=== PATIENT | male | born 1980 | race Caucasian/White ===

== ENCOUNTER 2018-04-10 04:13 | Emergency (ER) | payer BC ==
[~2018-04-10] VITALS: Ht 195.6 cm; Wt 129.3 kg
[~2018-04-10 04:13] MED LIST: NABUMETONE 750750 M1 PO; NORCO 5-325 TA1 EACH PO
[2018-04-10] MEDS ORDERED: LISINOPRIL20 MG PO (04:27)
[2018-04-10] MEDS ORDERED: NORVASC2.5 MG PO (04:27)
[2018-04-10] MEDS ORDERED: CARISOPRODOL 3350 MG PO (04:27)
[2018-04-10] MEDS ORDERED: PRILOSEC 10MG C10 MG PO (04:28)
[2018-04-10] MEDS ORDERED: NORCO 5-325 TA1 EACH PO (04:28)
[2018-04-10] MEDS ORDERED: NAPROSYN500 MG PO (07:48)
[2018-04-10] MEDS ORDERED: TRAMADOL 50 MG50 MG PO (07:48)
== END 2018-04-10 08:03 | disposition home or self-care (01) ==
LOC: ER 04:13
DX: S29.012A Strain of muscle and tendon of back wall of thorax, initial encounter (principal); M99.18 Subluxation complex (vertebral) of rib cage; G89.29 Other chronic pain; X58.XXXA Exposure to other specified factors, initial encounter; Y92.89 Other specified places as the place of occurrence of the external cause; Y93.89 Activity, other specified; Y99.8 Other external cause status

== ENCOUNTER 2018-06-21 09:51 | Emergency (ER) | payer BC ==
[~2018-06-21] VITALS: Ht 195.6 cm; Wt 135.6 kg
[~2018-06-21 09:51] MED LIST changes: +CARISOPRODOL 3350 MG PO; +LISINOPRIL20 MG PO; +NAPROSYN500 MG PO; +NORVASC2.5 MG PO; +PRILOSEC 10MG C10 MG PO; +TRAMADOL 50 MG50 MG PO
[2018-06-21 10:54] LABS: ABSOLUTE NEUTROPHILS 3.5 thou/uL (1.4-8.2); BASOPHILS 0.8 % (0.0-2.0); HEMATOCRIT 48.3 % (42.0-52.0); HEMOGLOBIN 16.7 gm/dL (14.0-18.0); LYMPHOCYTES 36.7 % (24.0-44.0); MCH 30.1 pg (26.0-34.0); MCHC 34.5 g/dL (28.0-37.0); MCV 87.3 fL (80.0-100.0); MONOCYTES 7.5 % (1.0-8.0); PLATELET COUNT 194 thou/uL (150-400); RBC 5.53 mil/uL (4.50-6.00); RDW 13.2 % (10.5-14.5); WBC 6.4 thou/uL (4.0-11.0)
[2018-06-21 11:09] LABS: ANION GAP 10 mmol/L (7-16); BUN 9 mg/dL (7-18); CALCIUM 9.4 mg/dL (8.5-10.1); CHLORIDE 103 mmol/L (98-107); CO2 27 mmol/L (21-32); CREATININE 0.9 mg/dL (0.7-1.3); GLUCOSE 132 mg/dL (74-106); SODIUM 140 mmol/L (136-145)
[2018-06-21 11:14] LABS: ALBUMIN 4.6 g/dL (3.4-5.0); DIRECT BILIRUBIN < 0.1 mg/dL (<0.1-0.3); SGOT 34 U/L (15-37); SGPT 79 U/L (30-65); TOTAL BILIRUBIN 0.4 mg/dL (<0.1-1.0)
[2018-06-21] MEDS ORDERED: NORFLEX100 MG PO (11:35)
[2018-06-21] MEDS ORDERED: NAPROSYN500 MG PO (11:35)
[2018-06-21] MEDS ORDERED: NORCO 5-325 TA1 EACH PO (11:35)
[2018-06-21 11:58] VITALS: BP 148/102
== END 2018-06-21 12:08 | disposition home or self-care (01) ==
LOC: ER 09:51
PROVIDERS: Emergency Medicine
DX: S20.221A Contusion of right back wall of thorax, initial encounter (principal); R10.11 Right upper quadrant pain; V19.9XXA Pedal cyclist (driver) (passenger) injured in unspecified traffic accident, initial encounter; Y93.89 Activity, other specified; Y92.89 Other specified places as the place of occurrence of the external cause; Y99.8 Other external cause status